=== PATIENT | female | born 1985 | race African-American/Black ===

== ENCOUNTER 2019-03-25 11:59 | Emergency (ER) | payer OTHER ==
[~2019-03-25] VITALS: Ht 165.1 cm; Wt 72.6 kg
[2019-03-25] MEDS ORDERED: LISI10TA2 PO (13:22)
[2019-03-25 13:57] LABS: BASOPHILS % (AUTO) 0 % (0-10); EOSINOPHILS % (AUTO) 1 % (0-10); HEMATOCRIT 41 % (35-52); HEMOGLOBIN 13.7 G/DL (11.5-16.0); LYMPHOCYTES # (AUTO) 1.7 X 10^3 (1.0-4.0); LYMPHOCYTES % (AUTO) 36 % (12-44); MEAN CORPUSCULAR HEMOGLOBIN 30 PG (25-34); MEAN CORPUSCULAR HGB CONC 34 G/DL (32-36); MEAN CORPUSCULAR VOLUME 89 FL (80-99); MONOCYTES # (AUTO) 0.3 X 10^3 (0.0-1.0); MONOCYTES % (AUTO) 6 % (0-12); NEUTROPHILS # (AUTO) 2.6 X 10^3 (1.8-7.8); NEUTROPHILS % (AUTO) 56 % (42-75); PLATELET COUNT 309 10^3/uL (130-400); RED CELL DISTRIBUTION WIDTH 14.9 % (10.0-14.5); WHITE BLOOD COUNT 4.6 10^3/uL (4.3-11.0)
[2019-03-25] MEDS ORDERED: LIDOCAINE 2% VISCOUS 15 ML UDC PO ONE (14:00)
[2019-03-25] MEDS ORDERED: ANTACID SUSP 30 ML UDC (MYLANTA) PO ONE (14:00)
[2019-03-25] MEDS ORDERED: LACTATED RINGERS 1,000 ML IV SCH (14:00)
[2019-03-25] MEDS ORDERED: ONDANSETRON 4 MG/2 ML (SDV) Z0FRAN IVP ONE (14:00)
[2019-03-25] MEDS ORDERED: PANTOPRAZOLE 40 MG (PROTONIX) VIAL IV ONE (14:00)
--- NOTE | 2019-03-25 14:00 | ED GI ---
General Chief Complaint: Abdominal/GI Problems Stated Complaint: N/V Nursing Triage Note: Patient ambulatory to triage with complaint of nausea and vomiting x 2 hours. Patient states she has had 3 episodes of vomiting today and the last episode had blood present in it. She is complaining of abdominal pain to mid abdomen. Sepsis Screen: No Definite Risk Source of Information: Patient Exam Limitations: No Limitations History of Present Illness Date Seen by Provider: Mar 25, 2019 Time Seen by Provider: 13:58 Initial Comments To ER, her friend with reports of epigastric abdominal pain, vomiting 2 this morning with a bit of hematemesis. She's never had hematemesis before, she does drink about a pint of vodka daily. is not interested in detox at this time. Timing/Duration: 4-6 Hours Severity/Quality: Moderate Location: Epigastric Radiation: No Radiation Activities at Onset: None Allergies and Home Medications Allergies Coded Allergies: No Known Drug Allergies (Unverified , 03/25/19) Home Medications Lisinopril 10 Mg Tablet, 10 MG PO DAILY, (Reported) Omeprazole 40 Mg Capsule.dr, 40 MG PO DAILY Prescribed by: LESVIA MANN on 03/25/19 0608 Patient Home Medication List Home Medication List Reviewed: Yes Review of Systems Review of Systems Constitutional: see HPI EENTM: No Symptoms Reported Respiratory: No Symptoms Reported Cardiovascular: No Symptoms Reported Gastrointestinal: See HPI, Abdominal Pain, Nausea Genitourinary: No Symptoms Reported Musculoskeletal: no symptoms reported Skin: no symptoms reported Psychiatric/Neurological: No Symptoms Reported Endocrine: No Symptoms Reported Hematologic/Lymphatic: No Symptoms Reported Past Iwzptqh-Gzublr-Pgeyki Hx Patient Social History Alcohol Use: Regular Use Alcohol Beverage of Choice: Vodka Recreational Drug Use: No Smoking Status: Current Everyday Smoker Type Used: Cigarettes 2nd Hand Smoke Exposure: Yes Recent Foreign Travel: No Contact w/Someone Who Travel: No Recent Infectious Disease Expo: No Recent Hopitalizations: No Immunizations Up To Date PED Vaccines UTD: Yes Seasonal Allergies Seasonal Allergies: No Past Medical History Surgeries: Yes (hernia repair) Tubal Ligation Respiratory: No Cardiac: Yes Hypertension Neurological: No : No Last Menstrual Period: Feb 23, 2019 [employer] History: Tubal Ligation Genitourinary: No Gastrointestinal: No Musculoskeletal: No Endocrine: No HEENT: No Cancer: No Psychosocial: No Integumentary: No Physical Exam Vital Signs Vital Signs - First Documented 03/25/19 13:11 Temp 98.3 Pulse 81 Resp 16 B/P (MAP) 160/117 (131) Pulse Ox 98 O2 Delivery Room Air Capillary Refill : Less Than 3 Seconds Height/Weight/BMI Height: 5'5.00" Weight: 160lbs. oz. 72.713842zs; BMI Method:Stated General Appearance: WD/WN, no apparent distress, other (alert oriented pleasant) HEENT: PERRL/EOMI, normal ENT inspection Respiratory: lungs clear, normal breath sounds, no respiratory distress, no accessory muscle use Cardiovascular: regular rate, rhythm, no murmur Gastrointestinal: normal bowel sounds, non tender, soft Extremities: normal range of motion, non-tender Neurologic/Psychiatric: alert, normal mood/affect, oriented x 3 Skin: normal color, warm/dry Progress/Results/Core Measures Results/Orders Lab Results Laboratory Tests Test 03/25/19 13:34 03/25/19 13:38 03/25/19 13:39 Range/Units Urine Color YELLOW Urine Clarity CLEAR Urine pH 7 5-9 Urine Specific [place] 1.010 L 1.016-1.022 Urine Protein NEGATIVE NEGATIVE Urine Glucose (UA) NEGATIVE NEGATIVE Urine Ketones NEGATIVE NEGATIVE Urine Nitrite NEGATIVE NEGATIVE Urine Bilirubin NEGATIVE NEGATIVE Urine Urobilinogen NORMAL NORMAL MG/DL Urine Leukocyte Esterase 1+ H NEGATIVE Urine RBC (Auto) NEGATIVE NEGATIVE Urine RBC RARE /HPF Urine WBC 2-5 /HPF Urine Squamous Epithelial Cells 2-5 /HPF Urine Crystals PRESENT H /LPF Urine Amorphous Sediment RARE KHARI PHOSPHATE H /LPF Urine Bacteria TRACE /HPF Urine Casts NONE /LPF Urine Mucus SMALL H /LPF Urine Culture Indicated YES Urine Opiates Screen NEGATIVE NEGATIVE Urine Oxycodone Screen NEGATIVE NEGATIVE Urine Methadone Screen NEGATIVE NEGATIVE Urine Propoxyphene Screen NEGATIVE NEGATIVE Urine Barbiturates Screen NEGATIVE NEGATIVE Ur Tricyclic Antidepressants Screen NEGATIVE NEGATIVE Urine Phencyclidine Screen NEGATIVE NEGATIVE Urine Amphetamines Screen NEGATIVE NEGATIVE Urine Methamphetamines Screen NEGATIVE NEGATIVE Urine Benzodiazepines Screen NEGATIVE NEGATIVE Urine Cocaine Screen NEGATIVE NEGATIVE Urine Cannabinoids Screen NEGATIVE NEGATIVE Lipase 18 8-78 U/L Serum Alcohol 177 H <10 MG/DL White Blood Count 4.6 4.3-11.0 10^3/uL Red Blood Count 4.57 4.35-5.85 10^6/uL Hemoglobin 13.7 11.5-16.0 G/DL Hematocrit 41 35-52 % Mean Corpuscular Volume 89 80-99 FL Mean Corpuscular Hemoglobin 30 25-34 PG Mean Corpuscular Hemoglobin Concent 34 32-36 G/DL Red Cell Distribution Width 14.9 H 10.0-14.5 % Platelet Count 309 130-400 10^3/uL Mean Platelet Volume 10.0 7.4-10.4 FL Neutrophils (%) (Auto) 56 42-75 % Lymphocytes (%) (Auto) 36 12-44 % Monocytes (%) (Auto) 6 0-12 % Eosinophils (%) (Auto) 1 0-10 % Basophils (%) (Auto) 0 0-10 % Neutrophils # (Auto) 2.6 1.8-7.8 X 10^3 Lymphocytes # (Auto) 1.7 1.0-4.0 X 10^3 Monocytes # (Auto) 0.3 0.0-1.0 X 10^3 Eosinophils # (Auto) 0.0 0.0-0.3 10^3/uL Basophils # (Auto) 0.0 0.0-0.1 10^3/uL Sodium Level 140 135-145 MMOL/L Potassium Level 3.8 3.6-5.0 MMOL/L Chloride Level 104 98-107 MMOL/L Carbon Dioxide Level 25 21-32 MMOL/L Anion Gap 11 5-14 MMOL/L Blood Urea Nitrogen 14 7-18 MG/DL Creatinine 0.65 0.60-1.30 MG/DL Estimat Glomerular Filtration Rate > 60 BUN/Creatinine Ratio 22 Glucose Level 84 70-105 MG/DL Calcium Level 8.6 8.5-10.1 MG/DL Corrected Calcium 8.4 L 8.5-10.1 MG/DL Total Bilirubin 0.7 0.1-1.0 MG/DL Aspartate Amino Transf (AST/SGOT) 45 H 5-34 U/L Alanine Aminotransferase (ALT/SGPT) 33 0-55 U/L Alkaline Phosphatase 78 40-136 U/L Total Protein 7.5 6.4-8.2 GM/DL Albumin 4.3 3.2-4.5 GM/DL Serum Test, Qualitative NEGATIVE NEGATIVE My Orders Orders - LESVIA MANN APRN Cbc With Automated Diff (03/25/19 13:49) Comprehensive Metabolic Panel (03/25/19 13:49) Hcg,Qualitative Serum (03/25/19 13:49) Ua Culture If Indicated (03/25/19 13:52) Drug Screen Stat (Urine) (03/25/19 13:52) Alcohol (03/25/19 13:56) Pantoprazole Injection (Protonix Injecti (03/25/19 14:00) Ondansetron Injection (Zofran Injectio (03/25/19 14:00) Antacid Suspension (Mylanta Suspension (03/25/19 14:00) Lidocaine 2% Viscous 15 Ml (Xylocaine Vi (03/25/19 14:00) Lipase (03/25/19 13:56) Ct Abdomen/Pelvis W (03/25/19 13:56) Lactated Ringers (Lr 1000 Ml Iv Solution (03/25/19 14:00) Iohexol Injection (Omnipaque 350 Mg/Ml 1 (03/25/19 14:15) Received Contrast (Hold Metformin- Contr (03/25/19 14:15) Ns (Ivpb) (Sodium Chloride 0.9% Ivpb Bag (03/25/19 14:15) Urine Culture (03/25/19 13:34) Medications Given in ED Current Medications Medications Dose Ordered Sig/Soha Route Start Time Stop Time Status Last Admin Dose Admin Al Hydrox/Mg Hydrox/Simethicone 30 ml ONCE ONCE PO 03/25/19 14:00 03/25/19 14:01 DC 03/25/19 14:11 30 ML Lidocaine HCl 10 ml ONCE ONCE PO 03/25/19 14:00 03/25/19 14:01 DC 03/25/19 14:11 10 ML Ondansetron HCl 8 mg ONCE ONCE IVP 03/25/19 14:00 03/25/19 14:01 DC 03/25/19 14:08 8 MG Pantoprazole 40 mg ONCE ONCE IV 03/25/19 14:00 03/25/19 14:01 DC 03/25/19 14:08 40 MG Vital Signs/I&O 03/25/19 13:11 Temp 98.3 Pulse 81 Resp 16 B/P (MAP) 160/117 (131) Pulse Ox 98 O2 Delivery Room Air Blood Pressure Mean: 131 Diagnostic Imaging Diagonstic Imaging: CT Comments NAME: [facility] REC#: [id number] PT STATUS: REG ER : 1985 PHYSICIAN: LESVIA MANN [employer]ER ADMIT DATE: 03/25/19/ER Draft Date of Exam:03/25/19 CT ABDOMEN/PELVIS W PROCEDURE: CT abdomen and pelvis with contrast. TECHNIQUE: Multiple contiguous axial images were obtained through the abdomen and pelvis after administration of intravenous contrast. Auto Exposure Controls were utilized during the CT exam to meet ALARA standards for radiation dose reduction. INDICATION: Nausea and vomiting. Hematemesis. COMPARISON: None. FINDINGS: Included portions of the lung bases are clear. CT ABDOMEN: Punctate nonobstructive left renal calculus is identified. No other renal or ureteral calculi are seen on either side. Additionally, there is no hydroureteronephrosis or other evidence of obstruction. Kidneys have an otherwise unremarkable CT appearance. The adrenal glands, spleen, pancreas, and liver have a normal CT appearance as well. Small bowel loops are nondistended. Normal appendix is identified. There is no loculated fluid collection, free fluid, nor free air within the abdomen. No abnormal mesenteric or retroperitoneal adenopathy is seen. Osseous structures show no acute abnormalities. Note is made of fat-containing umbilical hernia. Ostia measures approximately 2.[address] PELVIS: Small droplet of gas is identified within the qnq-ezineww-ecnqihham portion of the lumen of the urinary bladder. No calculi are seen within the urinary bladder. There is no loculated fluid collection, free fluid, nor free air within the pelvis. No abnormal pelvic adenopathy is seen. Osseous structures show no acute abnormalities. IMPRESSION: 1. Small amount of gas within the urinary bladder. Correlation with recent instrumentation is recommended. Alternatively, findings can be seen with gas-forming cystitis. 2. Nonobstructive left renal calculus. 3. Fat-containing umbilical hernia. Dictated on workstation # [id number] Dict: 03/25/19 1442 Trans: 03/25/19 1450 [id number] Interpreted by: ANNE-MARIE CABRERA MD Electronically signed by: Departure Impression Primary Impression: Alcoholic gastritis Qualified Codes: K29.21 - Alcoholic gastritis with bleeding Disposition: 01 HOME, SELF-CARE Condition: Stable Departure-Patient Inst. Decision time for Depature: 13:59 Referrals: DELMAN,ZAIDA B DO ZION SMITH TAKAAKI MD STEWART, JULIE A MD Patient Instructions: Gastritis Add. Discharge Instructions: 1. Do your best to reduce the alcohol intake. Take a daily acid reducers such as omeprazole [id number]. If you wish to pursue outpatient treatment, you can call Dr. Mansi Bennett at [facility] who can help with outpatient substance abuse. Call one of the surgeons as well to schedule follow-up exam which may include endoscopy to evaluate the lining of the stomach in the esophagus. Discharge instructions reviewed with patient and/or family. Voiced understanding. Scripts Omeprazole (Omeprazole) 40 Mg Capsule. 40 MG PO DAILY, #30 CAP Prov: LESVIA MANN APRN 03/25/19 Work/School Note: Work Release Form Date Seen in the Emergency Department: Mar 25, 2019 Return to Work: Mar 27, 2019 LESVIA MANN APRN Mar 25, 2019 14:00
[2019-03-25 14:01] LABS: BILIRUBIN,URINE NEGATIVE (NEGATIVE); CLARITY,URINE CLEAR; COLOR,URINE YELLOW; GLUCOSE, URINE (UA) NEGATIVE (NEGATIVE); KETONES,URINE NEGATIVE (NEGATIVE); LEUKOCYTE ESTERASE ,URINE 1+ (NEGATIVE); NITRITE,URINE NEGATIVE (NEGATIVE); PH,URINE 7 (5-9); PROTEIN,URINE NEGATIVE (NEGATIVE); UROBILINOGEN,URINE NORMAL (NORMAL)
[2019-03-25] MEDS ORDERED: IOHEXOL 350 MG/ML 100 ML (OMNIPAQUE 350) VIAL IV ONE (14:15)
[2019-03-25] MEDS ORDERED: NS 100 ML (IVPB) BAG IV ONE (14:15)
[2019-03-25] MEDS ORDERED: HOLD METFORMIN - RECEIVED CONTRAST 20 ML VIAL IV SCH (14:15)
[2019-03-25 14:18] LABS: ALANINE AMINOTRANSFERASE 33 U/L (0-55); ALBUMIN 4.3 GM/DL (3.2-4.5); ALKALINE PHOSPHATASE 78 U/L (40-136); BILIRUBIN,TOTAL 0.7 MG/DL (0.1-1.0); BUN/CREATININE RATIO 22; CALCIUM 8.6 MG/DL (8.5-10.1); CARBON DIOXIDE 25 MMOL/L (21-32); CHLORIDE 104 MMOL/L (98-107); CREATININE SERUM 0.65 MG/DL (0.60-1.30); GFR ESTIMATED > 60; GLUCOSE 84 MG/DL (70-105); POTASSIUM 3.8 MMOL/L (3.6-5.0); SODIUM 140 MMOL/L (135-145); TOTAL PROTEIN 7.5 GM/DL (6.4-8.2)
[2019-03-25 14:23] LABS: AMPHETAMINE SCREEN, URINE NEGATIVE (NEGATIVE); BACTERIA,URINE TRACE /HPF; BARBITURATE SCREEN URINE NEGATIVE (NEGATIVE); BENZODIAZEPINES SCREEN URINE NEGATIVE (NEGATIVE); CANNABINOID SCREEN, URINE NEGATIVE (NEGATIVE); COCAINE SCREEN URINE NEGATIVE (NEGATIVE); METHADONE STAT NEGATIVE (NEGATIVE); METHAMPHETAMINE SCREEN URINE S NEGATIVE (NEGATIVE); OPIATE SCREEN URINE NEGATIVE (NEGATIVE); OXYCODONE STAT NEGATIVE (NEGATIVE); PROPOXYPHENE STAT NEGATIVE (NEGATIVE); RBC,URINE RARE /HPF; TRICYCLIC ANTIDEPRESSANTS SCRE NEGATIVE (NEGATIVE)
[2019-03-25 14:24] LABS: AMORPHOUS SEDIMENT,UR RARE AMOR PHOSPHATE /LPF
[2019-03-25 14:37] LABS: LIPASE 18 U/L (8-78)
--- NOTE | 2019-03-25 14:51 | Diagnostic Imaging Report ---
PROCEDURE: CT abdomen and pelvis with contrast. TECHNIQUE: Multiple contiguous axial images were obtained through the abdomen and pelvis after administration of intravenous contrast. Auto Exposure Controls were utilized during the CT exam to meet ALARA standards for radiation dose reduction. INDICATION: Nausea and vomiting. Hematemesis. COMPARISON: None. FINDINGS: Included portions of the lung bases are clear. CT ABDOMEN: Punctate nonobstructive left renal calculus is identified. No other renal or ureteral calculi are seen on either side. Additionally, there is no hydroureteronephrosis or other evidence of obstruction. Kidneys have an otherwise unremarkable CT appearance. The adrenal glands, spleen, pancreas, and liver have a normal CT appearance as well. Small bowel loops are nondistended. Normal appendix is identified. There is no loculated fluid collection, free fluid, nor free air within the abdomen. No abnormal mesenteric or retroperitoneal adenopathy is seen. Osseous structures show no acute abnormalities. Note is made of fat-containing umbilical hernia. Ostia measures approximately 2.[address] PELVIS: Small droplet of gas is identified within the zvz-pbyaiqt-qdefdhuuh portion of the lumen of the urinary bladder. No calculi are seen within the urinary bladder. There is no loculated fluid collection, free fluid, nor free air within the pelvis. No abnormal pelvic adenopathy is seen. Osseous structures show no acute abnormalities. Bilateral L5 pars defects are noted. IMPRESSION: 1. Small amount of gas within the urinary bladder. Correlation with recent instrumentation is recommended. Alternatively, findings can be seen with gas-forming cystitis. 2. Nonobstructive left renal calculus. 3. Fat-containing umbilical hernia. Dictated by: Dictated on workstation # [id number]
[2019-03-25] MEDS ORDERED: OMEP40CA36 PO (14:52)
[2019-03-25] MEDS ORDERED: PROMETHAZINE INJ 25 MG/ML (PHENERGAN) AMP IVP ONE (15:00)
[2019-03-25 15:08] VITALS: BP 148/105
== END 2019-03-25 15:14 | disposition home or self-care (01) ==
LOC: ER 12:01
DX: K29.21 Alcoholic gastritis with bleeding (principal); I10 Essential (primary) hypertension; F17.210 Nicotine dependence, cigarettes, uncomplicated; Z98.51 Tubal ligation status
CPT/HCPCS: 36415; 74177; 80053; 80306; 80320; 81000; 83690; 84703; 85025; 87088